=== PATIENT | male | born 1970 | race Caucasian/White ===

== ENCOUNTER 2025-02-25 07:00 | Emergency (ER) | payer OTHER, SELFPAY ==
[2025-02-25 07:01] VITALS: BP 151/94
[2025-02-25 07:35] VITALS: BMI 24.7
[2025-02-25 07:37] VITALS: BP 135/83
[2025-02-25 08:00] VITALS: BP 136/84
--- NOTE | 2025-02-25 08:31 | ED.GENMED ---
History of Present Illness
General
Chief Complaint: Back Pain
Source: patient
Exam Limitations: none
Time Seen by Provider: 02/25/25 08:00
Nursing documentation reviewed up to this point in time: agreed with
History of Present Illness
History of Present Illness:
Patient is a 54-year-old male who presents to the ER for evaluation of sciatica. He reports he has chronic sciatica but manages it with his regular medication. Patient reports for the past 1 to 2 days however he has had worsening sciatica pain.
His typical pain is on his right now is on the left. He has been taking acetaminophen, Methocarbamol, Flexeril ibuprofen without relief. He also reports that he was recently diagnosed with possible Lyme and had a rash at that time prescribed
Medrol Dosepak. He is on day 3 but did not take it yet today. He was prescribed antibiotics also by his primary physician
He denies any leg weakness. He denies any bowel or bladder incontinence. no fever. no recent trauma .
Past History
Past History
ED Past Medical History: Other (Patient takes medications he does remember the names)
Patient has exhibited threatening behavior?: Yes
Date of threatening behavior? (updated with each occurrence): 05/21/20
Social History
Tobacco: Smoker
Alcohol: Occasional
Drug: None
Personal:
Living: with family
Employment: Employed
Family History
Family History: Other (Noncontributory)
Phy Exam
General Physical Exam
General Presentation: no apparent distress
General age: appears stated age
General Skin: warm and dry
General Habitus: normal
General Mental: alert
General Hydration: appears well hydrated
Musculoskeletal Exam
Musculoskeletal Exam: full ROM
Skin Exam
Skin Exam: normal color and warm/dry
Psychiatric Exam
Psychiatric Exam: normal mood/affect
Course
Orders/Labs/Results
Orders:
Orders
02/25/25 08:28
Dexamethasone Sod Phosphate [Decadron] 10 mg IM NOW STA
Vital Signs
Initial and Last Documented VS:
Initial Vital Signs
Temp Pulse Resp BP Pulse Ox
98.2 F 88 18 151/94 98
02/25/25 07:01 02/25/25 07:01 02/25/25 07:01 02/25/25 07:01 02/25/25 07:01
Last Documented Vital Signs
Temp Pulse Resp BP Pulse Ox
98.2 F 88 18 136/84 98
02/25/25 07:01 02/25/25 07:01 02/25/25 07:01 02/25/25 08:00 02/25/25 08:35
MDM/Problems Addressed
Differential Diagnosis Includes:
Not limited to sciatica, back pain
MDM/Problems Addressed:
Symptoms are consistent with sciatica. Patient is currently on a small Medrol Dosepak day 3 but has not taken the third day yet. He is on this for rash possible Lyme. He is also being [facility] with [facility]. He presented
for worsening sciatica down his left side. He has no neurological deficits. Will stop his current Medrol Dosepak and give a stronger higher prednisone taper. He was given 1 dose of IM Decadron here in the ER. He has no neurological deficits
denies any fever chills he is nontoxic stable for discharge home with outpatient [facility] follow-up.
*Pulse Oximetry
SaO2: 98
Oxygen Mode of Delivery: Room air
Patient hypoxic: no
*Critical Care Note
Total Time (30-74mins, 75-104mins- exclusive of procedures): Not Applicable
ED Attending Note
-
Portions of this chart may have been created with voice recognition software.� Occasional wrong word or��sound alike� substitutions may have occurred due to the inherent limitations of voice recognition software.
Discharge Plan
Departure
Patient Disposition: Home (Routine Discharge)
Date of Disposition: 02/25/25
Time of Disposition: 08:58
Patient with high blood pressure during this ER visit?: Yes
Condition: Fair
Covid-19: Not Applicable
Discharge Problem:
Sciatica
Instructions: Sciatica (DC), BLOOD PRESSURE
Prescriptions:
New
prednisone 10 mg Tablet
See Rx Instructions .ROUTE .COMPLEX Qty: 30 0RF
Rx Instructions:
Take By Mouth:
40 mg daily x3 days, 30 mg daily x3 days,
20 mg daily x3 days, 10 mg daily x3 days.
No Action
clindamycin HCl 300 mg capsule
300 mg PO TID Qty: 21 0RF
Referrals:
UNKNOWN - PT DOES,NOT KNOW [Family Provider]
Activity Restrictions/Additional Instructions:
Stop current prescription for steroids and start new higher tapered dose starting tomorrow. You were given a dose of steroids here in the ER.
You may continue to take your Flexeril and Tylenol as needed. Follow-up with your [facility] return if any worsening of symptoms
Interventions
Interventions:
*Risk Screen - Suicide Last Done: 02/25/25 07:01
*General Assessment Last Done: 02/25/25 07:01
*Neglect/Abuse Screening Last Done: 02/25/25 07:01
*ED- Fall Risk Assessment Last Done: 02/25/25 07:35
*ED COVID-19 Vaccine History Last Done: 02/25/25 07:35
ED-Musculoskeletal Assessment Last Done: 02/25/25 07:35
Discharge Date and Time
Print Language: DANISH
[2025-02-25] MEDS: DECADRON 10 MG IM (08:33)
== END 2025-02-25 09:05 | disposition home or self-care (01) ==
LOC: EMR 07:00
PROVIDERS: EMERGENCY PHYSICIAN Emergency Medicine
DX: M54.32 Sciatica, left side (principal); F17.200 Nicotine dependence, unspecified, uncomplicated
CPT/HCPCS: 99282